=== PATIENT | female | born 1950 | race Caucasian/White ===

== ENCOUNTER 2018-03-01 09:40 | Outpatient (REF) | payer MEDICARE, BC, SELFPAY ==
[2018-03-01 12:22] LABS: HCT 38.6 % (36.0-46.0); HGB 12.7 g/dL (12.0-15.5); Mean Corp. HGB Concentration 32.9 g/dL (32.0-36.0); Mean Corpuscular Hemoglobin 29.3 pg (27.0-33.0); Mean Corpuscular Volume 88.9 fL (80-95); Mean Platelet Volume 9.7 fL (8.0-11.0); Platelet Count 300 x1000/uL (130-400); RBC 4.34 m/cumm (4.00-5.20); RBC Distribution Width 13.2 % (11.7-14.6)
[2018-03-01 13:03] LABS: Anion Gap 8.6 mmol/L (3-11); BUN 11 mg/dL (7-18); CO2 27.4 mmol/L (21.0-32.0); CREATININE 0.89 mg/dL (0.55-1.02); Chloride 103 mmol/L (98-107); Glucose 92 mg/dL (70-100); Potassium 4.4 mmol/L (3.5-5.1); Sodium 139 mmol/L (136-145); TSH (W/Ref FT4) 1.42 uIU/mL (0.358-3.74); Vitamin B12 401 pg/mL (193-986)
[2018-03-01 13:04] LABS: Folate > 20.0 ng/mL (8.6-20.0)
== END 2018-03-01 10:00 ==
LOC: NCHCN 09:40
PROVIDERS: PCP Family Medicine; Visit Provider Specialist/Technologist Athletic Trainer
DX: F41.9 Anxiety disorder, unspecified (principal); R41.3 Other amnesia
CPT/HCPCS: 80048; 85027; 82607; 82746; 84443

== ENCOUNTER 2018-04-10 00:17 | Outpatient (CLI) | payer MEDICARE, BC, SELFPAY ==
--- NOTE | 2018-04-10 08:51 | DI.MAMMO_ITS ---
SYMPTOM/DIAGNOSIS: SCREENING Z12.31 MAMMOGRAMS: Mammograms were interpreted according to the usual protocol including computer analysis with CAD system, tomosynthesis and C view imaging. Comparison with prior examinations. Breast density B. No suspicious masses or microcalcifications are seen. There has been no significant change compared with the prior examinations. IMPRESSION: No evidence for malignancy. Category 1-B. Routine yearly screening is recommended. SA ASSESSMENT OF FINDINGS: Negative. Category 1. Patient will receive a letter notifying them of these results. BI-RADS category B. There are scattered areas of fibroglandular density.
== END 2018-04-10 00:37 ==
PROVIDERS: PCP Family Medicine; Visit Provider Family Medicine
DX: Z12.31 Encounter for screening mammogram for malignant neoplasm of breast (principal)
CPT/HCPCS: 77063; 77067

== ENCOUNTER 2019-10-30 19:22 | Outpatient (REF) | payer OTHER, SELFPAY ==
[2019-11-03 20:07] LABS: SARS-CoV-2 RNA Undetected (Undetected)
== END 2019-10-30 19:42 ==
LOC: NCHCN 19:22
PROVIDERS: PCP Family Medicine; Visit Provider Nurse Practitioner Family
DX: Z20.828 Contact with and (suspected) exposure to other viral communicable diseases (principal)
CPT/HCPCS: U0003

== ENCOUNTER → 2019-11-20 09:43 | Outpatient (BNVA) | payer OTHER, SELFPAY | PROVIDERS: PCP Family Medicine; Referring Provider Family Medicine; Visit Provider Psychiatry & Neurology Neurology | DX: R41.3 Other amnesia (principal) | CPT/HCPCS: 99205; 99215 ==

== ENCOUNTER 2019-11-30 03:18 | Outpatient (CLI) | payer OTHER, SELFPAY ==
--- NOTE | 2019-11-30 06:45 | DI.MRI_ITS ---
EXAM: MR BRAIN WO CLINICAL HISTORY: memory loss,441.3,OTHER AMNESIA. TECHNIQUE: Multiplanar multisequence MRI was performed. COMPARISON: No exams were available for comparison FINDINGS: MR examination the brain was performed according to the usual protocol. There is mild generalized ce rebral atrophy. 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 The orbital structures appear intact. Pituitary is unremarkable in appearance. Temporal bone struct ures appear intact. There is normal flow void in the [id number] vasculature. There are periventricular areas of abnormal signal seen on T2 weighted and FLAIR imaging in a pattern consistent with microvascular ischemic change, mild. Diffusion-weighted imaging shows no evidence of infarction. Susceptibility weighted imaging shows no evidence of intracranial hemorrhage. IMPRESSION: Mild cerebral atrophy and presumed microvascular ischemic changes, no other significant findings. DATA REPOSITORY:
== END 2019-11-30 03:38 ==
PROVIDERS: PCP Family Medicine; Visit Provider Psychiatry & Neurology Neurology
DX: R41.3 Other amnesia (principal); G31.9 Degenerative disease of nervous system, unspecified
CPT/HCPCS: 70551

== ENCOUNTER → 2019-12-20 14:40 | Outpatient (BNVA) | payer OTHER, BC, SELFPAY | PROVIDERS: PCP Family Medicine; Referring Provider Family Medicine; Visit Provider Psychiatry & Neurology Neurology | DX: R41.3 Other amnesia (principal); G30.9 Alzheimer's disease, unspecified; F02.80 Dementia in other diseases classified elsewhere, unspecified severity, without behavioral disturbance, psychotic disturbance, mood disturbance, and anxiety | CPT/HCPCS: 99213 ==

== ENCOUNTER 2021-10-22 10:12 | Outpatient (REF) | payer MEDICARE, SELFPAY ==
[2021-10-22 10:56] LABS: ALT 29 U/L (14-59); AST 25 U/L (15-37); Albumin 3.7 g/dL (3.4-5.0); Alkaline Phosphatase 107 U/L (46-116); Anion Gap 10.2 mmol/L (3-11); BUN 12 mg/dL (7-18); Bilirubin, Total 0.3 mg/dL (0.2-1.0); CO2 25.8 mmol/L (21.0-32.0); CREATININE 0.9 mg/dL (0.55-1.02); Calcium 8.6 mg/dL (8.5-10.1); Chloride 99 mmol/L (98-107); Glucose 116 mg/dL (74-106); Potassium 3.6 mmol/L (3.5-5.1); Sodium 135 mmol/L (136-145); Total Protein 7.1 g/dL (6.4-8.2)
== END 2021-10-22 10:13 | disposition home or self-care (01) ==
LOC: LBN 10:12
PROVIDERS: PCP Family Medicine; Visit Provider Physician Assistant Medical
DX: U07.1 COVID-19 (principal)
CPT/HCPCS: 80053

== ENCOUNTER → 2022-01-02 10:58 | Outpatient (CLI) | payer MEDICARE, SELFPAY ==
--- NOTE | 2022-01-02 | DI.RAD_ITS ---
Exam(s) XR ANKLE RT COMPLETE EXAM: XR ANKLE RT COMPLETE CLINICAL HISTORY: ANKLE PAIN RIGHT. TECHNIQUE: 2D digital imaging was performed. COMPARISON: No exams were available for comparison FINDINGS: 3 views There is soft tissue swelling on both sides of the ankle. No evidence of acute fracture or widening of the ankle mortise. Talar dome unremarkable. There appears to be an ankle joint effusion. No inf erior calcaneal spur. Also increased density in the pre Achilles fat, possibly significant. Cameorn s tendon shadow appears unremarkable. IMPRESSION: DATA REPOSITORY: RADIATION DOSE DELIVERED:
--- NOTE | 2022-01-02 11:41 | DI.VRAD_ITS ---
PROCEDURE INFORMATION: Exam: XR Right Ankle Exam date and time: 01/02/2022 11:12 AM Age: 71 years old Clinical indication: Other: Right ankle pain TECHNIQUE: Imaging protocol: Radiologic exam of the Right ankle. Views: 3 or more views. COMPARISON: No relevant prior studies available. FINDINGS: Bones/joints: Osseous demineralization. Subtle cortical irregularity and lucency along lateral process of talus, appreciated on AP view, concerning for acute fracture. No malalignment. Tiny heel spur. Soft tissues: Generalized soft tissue swelling about the ankle. IMPRESSION: Generalized soft tissue swelling about the ankle. Subtle cortical irregularity and lucency along lateral process of talus, appreciated on AP view, concerning for acute fracture. Dictated and Authenticated by: So Valerio MD. Ordering:TERRANCE Gaspar MD
== END ==
PROVIDERS: PCP Family Medicine; Visit Provider Physician Assistant Medical
DX: M25.571 Pain in right ankle and joints of right foot (principal); M79.89 Other specified soft tissue disorders; M25.471 Effusion, right ankle
CPT/HCPCS: 73610

== ENCOUNTER → 2022-01-11 15:23 | Outpatient (BNVA) | payer MEDICARE, SELFPAY | PROVIDERS: PCP Family Medicine; Referring Provider Family Medicine; Visit Provider Physician Assistant | DX: X58.XXXA Exposure to other specified factors, initial encounter (principal); S93.401A Sprain of unspecified ligament of right ankle, initial encounter | CPT/HCPCS: 99213 ==

== ENCOUNTER 2022-10-04 13:26 | Outpatient (REF) | payer MEDICARE, SELFPAY ==
[2022-10-04 16:15] LABS: ALT 25 U/L (14-59); AST 19 U/L (15-37); Albumin 3.9 g/dL (3.4-5.0); Alkaline Phosphatase 97 U/L (46-116); Anion Gap 9.1 mmol/L (3-11); BUN 24 mg/dL (7-18); Bilirubin, Total 0.2 mg/dL (0.2-1.0); CO2 26.9 mmol/L (21.0-32.0); CREATININE 0.8 mg/dL (0.55-1.02); Calcium 9.2 mg/dL (8.5-10.1); Chloride 103 mmol/L (98-107); Estimated GFR 78.24 (mL/min/1.73m2); Glucose 134 mg/dL (74-106); Potassium 3.9 mmol/L (3.5-5.1); Sodium 139 mmol/L (136-145); Total Protein 7.4 g/dL (6.4-8.2)
== END 2022-10-04 13:27 | disposition home or self-care (01) ==
LOC: LBN 13:26
PROVIDERS: PCP Family Medicine; Visit Provider Nurse Practitioner Family
DX: U07.1 COVID-19 (principal)
CPT/HCPCS: 80053